=== PATIENT | male | born 1955 | race Caucasian/White ===

== ENCOUNTER 2017-07-11 11:34 | Emergency (ER) | payer OTHER ==
[~2017-07-11] VITALS: Ht 172.7 cm; Wt 108.5 kg
[~2017-07-11 11:34] MED LIST: ASPIR-LOW81 MG PO; NATURAL BALANCE15 ML RIGHT EYE; PREDNISONE10 MG PO; REFRESH LACRI-3.5 GM RIGHT EYE
[2017-07-11] MEDS ORDERED: FLEXERIL10 MG PO (12:44)
[2017-07-11] MEDS ORDERED: ZITHROMAX Z-PA250 MG PO (14:09)
[2017-07-11 14:20] VITALS: BP 130/90
== END 2017-07-11 14:21 | disposition home or self-care (01) ==
LOC: EME 11:34
DX: J18.9 Pneumonia, unspecified organism (principal); J44.0 Chronic obstructive pulmonary disease with (acute) lower respiratory infection; R10.9 Unspecified abdominal pain; R07.9 Chest pain, unspecified; Z87.891 Personal history of nicotine dependence; Z85.828 Personal history of other malignant neoplasm of skin
CPT/HCPCS: 71046; 99281; 99283